=== PATIENT | female | born 1985 | race Caucasian/White ===

== ENCOUNTER 2022-06-23 00:13 | Emergency (ER) | payer BC ==
[~2022-06-23] VITALS: Ht 175.3 cm; Wt 79.4 kg
[2022-06-23 00:32] VITALS: BP 123/85
--- NOTE | 2022-06-23 01:12 | NUR ---
Patient discharged to home in stable condition. Written and verbal after care instructions given. Patient verbalizes understanding of instruction. Pt ambulatory with a steady gait
== END 2022-06-23 01:15 | disposition home or self-care (01) ==
LOC: ER 00:17
DX: S61.211A Laceration without foreign body of left index finger without damage to nail, initial encounter (principal); X58.XXXA Exposure to other specified factors, initial encounter; Y93.89 Activity, other specified; Y92.89 Other specified places as the place of occurrence of the external cause; Y99.8 Other external cause status